=== PATIENT | female | born 1965 | race American Indian/Alaskan Native ===

== ENCOUNTER 2016-07-03 15:36 | Emergency (ER) | payer SELFPAY ==
[2016-07-03 15:52] VITALS: BP 107/63
--- NOTE | 2016-07-03 17:38 | Emergency Department Report ---
Chief Complaint: Skin/Abscess/Foreign Body Stated Complaint: BUMP LT ARMPIT Time Seen by Provider: 07/03/16 17:27 - HPI History of Present Illness: 50-year-old female presents today with a lump under her left arm. Patient states that she had a procedure done 6 days ago which involved putting dye through her fistula to check for blockage. Patient states that since then she is unable to hear from her left ear and she has a painful knot of left axillary region. Patient had her full dialysis treatment today. - ROS Review of Systems: Per HPI - Exam Vital Signs: Vital Signs 07/03/16 15:48 Temperature 98.9 F Pulse Rate 68 Respiratory 18 Rate Blood Pressure 107/63 O2 Sat by Pulse 99 Oximetry Physical Exam: General: 50-year-old female in no acute distress. Well-developed, well- nourished. CV: Regular rate and rhythm. Lungs: Clear to auscultation bilaterally. Left axilla: 1 cm in diameter lump noted of the left axillary region. Positive for tender to touch. No drainage or bleeding noted. Ears: Cerumen impaction noted bilaterally. MSE screening note: Focused history and physical exam performed. Due to findings the following was ordered: ED Disposition for MSE Condition: Stable
[2016-07-03 18:49] LABS: BUN/Creatinine Ratio 4.5; Basophils % (Auto) 0.3 % (0.0-1.8); Calcium 8.4 mg/dL (8.4-10.2); Chloride 89.7 mmol/L (98-107); Eosinophils % (Auto) 0.4 % (0.0-4.3); Hematocrit 30.9 % (30.3-42.9); Mean Corpuscular HGB Conc 32 % (30-34); Mean Corpuscular Hemoglobin 30 pg (28-32); Mean Corpuscular Volume 94 fl (79-97); Platelet Count 281 K/mm3 (140-440); Potassium 4.1 mmol/L (3.6-5.0); Red Cell Distribution Width 13.9 % (13.2-15.2); White Blood Count 4.8 K/mm3 (4.5-11.0)
--- NOTE | 2016-07-06 22:18 | ED Elopement Review ---
ED Pt Elopement review - Results review Lab results: Laboratory Tests 07/03/16 07/03/16 17:47 17:47 WBC 4.8 RBC 3.30 L Hgb 10.0 L Hct 30.9 MCV 94 MCH 30 MCHC 32 RDW 13.9 Plt Count 281 Lymph % (Auto) 33.5 Person % (Auto) 13.0 H Eos % (Auto) 0.4 Baso % (Auto) 0.3 Lymph # 1.6 Person # 0.6 Eos # 0.0 Baso # 0.0 Seg Neutrophils % 52.8 Seg Neutrophils # 2.5 Sodium 130 L Potassium 4.1 Chloride 89.7 L Carbon Dioxide 27 Anion Gap 17 BUN 18 H Creatinine 4.0 H Estimated GFR 12 BUN/Creatinine Ratio 4.50 Glucose 544 H* Calcium 8.4 - Call Back decision Pt Call Back Decision: Pt to F/U with PMD (hyperglyemia here,)
== END 2016-07-03 17:50 | disposition left against medical advice (07) ==
LOC: ED 15:36
DX: M79.89 Other specified soft tissue disorders (principal); Z53.21 Procedure and treatment not carried out due to patient leaving prior to being seen by health care provider
CPT/HCPCS: 36415; 80048; 85025

== ENCOUNTER 2016-10-08 10:37 | Outpatient (CLI) | payer MEDICARE, OTHER ==
--- NOTE | 2016-10-15 07:04 | Vascular Lab Report ---
CAROTID DUPLEX STUDY: RIGHT PSVEDV CCA PROX: [id number] CCA DIST: 8819 ICA PROX: 6218 ICA MID: 7325 ICA DIST: 7625 ECA: 65 VERT: 53 16 LEFT PSVEDV CCA PROX:[id number] CCA DIST: 9623 ICA PROX: 7417 ICA MID: 6020 ICA DIST: 7528 ECA: 57 VERT: 64 17 REASON FOR EXAM: Carotid artery stenosis. COMMENTS ON THE RIGHT: Doppler frequency analysis is consistent with 16 to 49 percent diameter reduction of the internal carotid artery. Minimal amount of plaque is seen. The common carotid artery is patent. The external carotid artery is patent. The vertebral artery has antegrade flow. COMMENTS ON THE LEFT: Doppler frequency analysis is consistent with 16 to 49 percent diameter reduction of the internal carotid artery. Minimal amount of plaque is seen. The common carotid artery is patent. The external carotid artery is patent. The vertebral artery has antegrade flow. IMPRESSION: Less than 50% diameter reduction in the internal carotid arteries bilaterally. Consider repeat carotid artery duplex in 12 months.
== END 2016-10-08 10:38 | disposition home or self-care (01) ==
LOC: VAS 10:37
PROVIDERS: ATTEND Internal Medicine Cardiovascular Disease
DX: I65.23 Occlusion and stenosis of bilateral carotid arteries (principal)
CPT/HCPCS: 93880

== ENCOUNTER 2017-01-18 11:03 | Outpatient (CLI) | payer MEDICARE, OTHER ==
[2017-01-18] MEDS ORDERED: NACL ONE (13:05)
--- NOTE | 2017-01-18 14:32 | Cat Scan Report ---
CT scan of abdomen and pelvis with IV contrast: History: Pelvic and perineal pain, abdominal pain Findings: Normal lung bases. No pleural or pericardial effusion. Normal liver spleen pancreas gallbladder. Normal adrenals. Several hypodensities right and left kidney probably multiple cysts. No hydronephrosis. Decompressed bladder. No free intraperitoneal fluid or air. No evidence of adenopathy. Atherosclerotic abdominal aorta without aneurysm. Stable inferior vena cava filter. Minimal ascitic fluid around spleen and liver. Gaseous colon with large volume stool in colon. No evidence of appendicitis or diverticulitis. Impression: Multiple hypodensities right and left kidney suggestive of cysts. Sonographic correlation advised. Minimal ascitic fluid. Suspected fibroid uterus.
== END 2017-01-18 11:04 | disposition home or self-care (01) ==
LOC: CT 11:03
PROVIDERS: ATTEND Family Medicine
DX: R10.9 Unspecified abdominal pain (principal); R10.2 Pelvic and perineal pain; I70.0 Atherosclerosis of aorta
CPT/HCPCS: 36415; 74177; 82565; 84520; Q9967

== ENCOUNTER 2018-09-26 15:31 | Emergency (ER) | payer OTHER, MEDICARE ==
--- NOTE | 2018-09-26 16:11 | Emergency Department Report ---
Chief Complaint: High BP Stated Complaint: HBP/WHEEZING Time Seen by Provider: 09/26/18 16:07 - HPI History of Present Illness: This is a 53 y.o. female that presents to the ER with cough. Patient went to [facility] prior to arrival. States CXR was normal but blood pressure and glucose was elevated. 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 PMH: DM, HTN, ESRD on dialysis - Exam Vital Signs: Vital Signs 09/26/18 16:06 Temperature 97.7 F Pulse Rate 64 Respiratory 20 Rate Blood Pressure 182/85 O2 Sat by Pulse 98 Oximetry MSE screening note: Focused history and physical exam performed. Due to findings the following was ordered: ED Disposition for MSE Condition: Stable
[2018-09-26] MEDS ORDERED: CATAPRES PO ONE ×2 (16:51→17:36)
[2018-09-26] MEDS ORDERED: ATROVENT IH ONE (16:51)
[2018-09-26] MEDS ORDERED: PROVENTIL IH ONE (16:51)
[2018-09-26] MEDS ORDERED: HumuLIN R SUB-Q ONE (16:52)
[2018-09-26 17:42] VITALS: BP 162/78
--- NOTE | 2018-09-26 18:26 | Emergency Department Report ---
- General Chief Complaint: High BP Stated Complaint: HBP/WHEEZING Time Seen by Provider: 09/26/18 16:07 Source: patient Mode of arrival: Ambulatory Limitations: No Limitations - History of Present Illness Initial Comments: Patient is a 53-year-old female past medical history of hypertension diabetes and end-stage renal disease who goes to dialysis TTS who is here because of 6 weeks of cough. Patient states she put in a cough off for several weeks. She finally went to urgent care today and because her blood pressure and blood sugar was elevated she was sent here for evaluation. Patient states that the cough is productive of yellow sputum. She states she just has some minor shortness of breath but denies any fever nausea vomiting. Patient's blood sugar at urgent care was greater than 300 she has had no nausea vomiting or abdominal cramps. Patient is a insulin-dependent diabetic and has not run out of her insulin. Patient blood pressure was 180/85 on arrival. She denies any chest pain. - Related Data Previous Rx's Medication Instructions Recorded Last Taken Type ALBUTEROL Inhaler(NF) [VENTOLIN 2 puff IH Q4HRT #1 inha 09/26/18 Unknown Rx Inhaler(NF)] Benzonatate [Tessalon Perles] 100 mg PO Q8HR #10 capsule 09/26/18 Unknown Rx Allergies Allergy/AdvReac Type Severity Reaction Status Date / Time metoclopramide HCl Allergy Swelling Verified 07/03/16 15:48 [From Reglan] morphine Allergy Itching Verified 07/03/16 15:48 promethazine HCl Allergy Swelling Verified 07/03/16 15:48 [From Phenergan] ED Review of Systems ROS: Stated complaint: HBP/WHEEZING Other details as noted in HPI Comment: All other systems reviewed and negative ED Past Medical Hx - Past Medical History Hx Hypertension: Yes Hx Diabetes: Yes Hx Renal Disease: Yes (DIALYSIS) - Surgical History Additional Surgical History: SHUNT LEFT ARM KNEE SURG/ TUBAL/ RENAL TRANSPLANTCATARACT SURGERY - Social History Smoking Status: Never Smoker Substance Use Type: None - Medications Home Medications: Home Medications Medication Instructions Recorded Confirmed Last Taken Type ALBUTEROL Inhaler(NF) [VENTOLIN 2 puff IH Q4HRT #1 inha 09/26/18 Unknown Rx Inhaler(NF)] Benzonatate [Tessalon Perles] 100 mg PO Q8HR #10 capsule 09/26/18 Unknown Rx ED Physical Exam - General Limitations: No Limitations General appearance: alert, in no apparent distress - Head Head exam: Present: atraumatic, normocephalic - Eye Eye exam: Present: normal appearance, PERRL, EOMI - ENT ENT exam: Present: normal orophraynx, mucous membranes moist - Neck Neck exam: Present: normal inspection - Respiratory Respiratory exam: Present: wheezes. Absent: normal lung sounds bilaterally, respiratory distress, rales, rhonchi, stridor - Cardiovascular Cardiovascular Exam: Present: regular rate, normal rhythm, normal heart sounds. Absent: systolic murmur, diastolic murmur, rubs, gallop - GI/Abdominal GI/Abdominal exam: Present: soft, normal bowel sounds. Absent: distended, tenderness, guarding, rebound - Extremities Exam Extremities exam: Present: normal inspection - Back Exam Back exam: Present: normal inspection - Neurological Exam Neurological exam: Present: alert, oriented X3 - Psychiatric Psychiatric exam: Present: normal affect, normal mood - Skin Skin exam: Present: warm, dry, intact, normal color. Absent: rash ED Course Vital Signs 09/26/18 09/26/18 09/26/18 16:06 17:18 17:38 Temperature 97.7 F Pulse Rate 64 62 Pulse Rate [ 71 Posterior Bilateral Throughout] Respiratory 20 20 Rate Respiratory 20 Rate [Posterior Bilateral Throughout] Blood Pressure 182/85 Blood Pressure 162/78 [Right] O2 Sat by Pulse 98 100 Oximetry 09/26/18 18:20 Temperature Pulse Rate Pulse Rate [ 82 Posterior Bilateral Throughout] Respiratory Rate Respiratory 20 Rate [Posterior Bilateral Throughout] Blood Pressure Blood Pressure [Right] O2 Sat by Pulse Oximetry ED Medical Decision Making - Radiology Data Radiology results: image reviewed (patient had x-ray at the urgent care and a disc was provided. I was able to look at the chest x-ray is no acute process.) - Medical Decision Making She was given a neb treatment and her wheezing has resolved. Patient states she feels as though she is moving air much better. Patient will be referred to pulmonology. Patient given albuterol inhaler as well as Tessalon for cough. Patient will not be given steroids secondary to her elevation of her blood sugar. Critical care attestation.: If time is entered above; I have spent that time in minutes in the direct care of this critically ill patient, excluding procedure time. ED Disposition Clinical Impression: Hypertensive urgency, Hyperglycemia Chronic bronchitis Qualifiers: Chronic bronchitis type: simple Qualified Code(s): J41.0 - Simple chronic bronchitis Disposition: DC- TO HOME OR SELFCARE Is pt being admited?: No Does the pt Need Aspirin: No Condition: Stable Instructions: Chronic Bronchitis (ED), Hypertension (ED) Referrals: PRIMARY CARE, [Primary Care Provider] - 3-5 Days Time of Disposition: 18:26
== END 2018-09-26 18:35 | disposition home or self-care (01) ==
LOC: ED 15:31
DX: E11.65 Type 2 diabetes mellitus with hyperglycemia (principal); I16.0 Hypertensive urgency; J41.0 Simple chronic bronchitis
CPT/HCPCS: 82962; 94644; 99283

== ENCOUNTER 2019-04-14 02:12 | Emergency (ER) | payer MEDICARE, OTHER ==
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
[2019-04-14 04:28] VITALS: BP 160/78
== END 2019-04-14 04:30 | disposition home or self-care (01) ==
LOC: ED 02:12
DX: E10.649 Type 1 diabetes mellitus with hypoglycemia without coma (principal); E10.22 Type 1 diabetes mellitus with diabetic chronic kidney disease; I12.0 Hypertensive chronic kidney disease with stage 5 chronic kidney disease or end stage renal disease; N18.6 End stage renal disease; Z99.2 Dependence on renal dialysis; Z98.890 Other specified postprocedural states; Z88.8 Allergy status to other drugs, medicaments and biological substances; Z88.5 Allergy status to narcotic agent
CPT/HCPCS: 82962

== ENCOUNTER 2021-06-08 16:22 | Observation (INO) | payer MEDICARE ==
--- NOTE | 2021-06-08 17:57 | Emergency Department Report ---
ED Medical Clearance HPI - General Chief complaint: Medical Clearance Stated complaint: NEEDS DIALYSIS Time Seen by Provider: 06/08/21 17:51 Source: patient Mode of arrival: Ambulatory - History of Present Illness Initial comments: Patient is a 55-year-old female who presents emergency room stating she needs dialysis. She reports that she last had dialysis on 06/03/2021. Patient states that she was exposed at work to someone with COVID-19. She states that she went to get tested on 06/01/2021 and was advised that she was positive for COVID-19. She states that the clinic for COVID-19 positive patients was full and so therefore they advised her to come to the emergency room for dialysis. 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 She states héctor t she feels a little heavy like she is retaining some fluid but otherwise feels fine. She denies any chest pain, shortness of breath, leg swelling, fever, cough, vomiting, diarrhea. She states that she has been asymptomatic for the COVID-19. She states that she received both doses of the COVID-19 vaccine. Allergy to Reglan, morphine, Phenergan. Home medications: Previous Rx's Medication Instructions Recorded Last Taken Type ALBUTEROL Inhaler(NF) [VENTOLIN 2 puff IH Q4HRT #1 inha 09/26/18 Unknown Rx Inhaler(NF)] Benzonatate [Tessalon Perles] 100 mg PO Q8HR #10 capsule 09/26/18 Unknown Rx Allergies/Adverse reactions: Allergies Allergy/AdvReac Type Severity Reaction Status Date / Time metoclopramide HCl Allergy Swelling Verified 06/08/21 17:38 [From Reglan] morphine Allergy Itching Verified 06/08/21 17:38 promethazine HCl Allergy Swelling Verified 06/08/21 17:38 [From Phenergan] ED Review of Systems ROS: Stated complaint: NEEDS DIALYSIS Other details as noted in HPI Comment: All other systems reviewed and negative ED Past Medical Hx - Past Medical History Hx Hypertension: Yes Hx Diabetes: Yes Hx Renal Disease: Yes (DIALYSIS) - Surgical History Additional Surgical History: SHUNT LEFT ARM KNEE SURG/ TUBAL/ RENAL TRANSPLANTCATARACT SURGERY - Social History Smoking Status: Never Smoker Substance Use Type: None - Medications Home Medications: Home Medications Medication Instructions Recorded Confirmed Last Taken Type ALBUTEROL Inhaler(NF) [VENTOLIN 2 puff IH Q4HRT #1 inha 09/26/18 Unknown Rx Inhaler(NF)] Benzonatate [Tessalon Perles] 100 mg PO Q8HR #10 capsule 09/26/18 Unknown Rx ED Physical Exam - General Limitations: No Limitations General appearance: alert, in no apparent distress - Head Head exam: Present: atraumatic, normocephalic - Eye Eye exam: Present: normal appearance - ENT ENT exam: Present: mucous membranes moist - Respiratory Respiratory exam: Present: normal lung sounds bilaterally. Absent: respiratory distress, wheezes, rales, rhonchi, stridor, chest wall tenderness, accessory muscle use, decreased breath sounds, prolonged expiratory - Cardiovascular Cardiovascular Exam: Present: regular rate, normal rhythm, systolic murmur - Extremities Exam Extremities exam: Absent: pedal edema - Neurological Exam Neurological exam: Present: alert, oriented X3 - Psychiatric Psychiatric exam: Present: normal affect, normal mood - Skin Skin exam: Present: warm, dry, intact ED Course Vital Signs 06/08/21 17:42 Temperature 98.3 F Pulse Rate 70 Respiratory 18 Rate Blood Pressure 175/81 O2 Sat by Pulse 100 Oximetry - Consultations Consultation #1: 06/08/21 19:[address] Short, hospitalist will accept and resume care of patient, will admit to hospitalist service 06/08/21 19:[address] Cullen, nephrology who advised admit to hospitalist service, advised to give Kayexalate 30 mEq, 1 amp of D50, 5 units of IV insulin, 10 mg of albuterol, 1 amp calcium gluconate and 1 amp of sodium bicarb ED Medical Decision Making - Lab Data Result diagrams: 06/08/21 17:56 06/08/21 17:56 Lab Results 06/08/21 06/08/21 Range/Units 17:56 17:56 WBC 4.2 L (4.5-11.0) K/mm3 RBC 3.62 L (3.65-5.03) M/mm3 Hgb 10.8 (10.1-14.3) gm/dl Hct 34.8 (30.3-42.9) % MCV 96 (79-97) fl MCH 30 (28-32) pg MCHC 31 (30-34) % RDW 14.2 (13.2-15.2) % Plt Count 272 (140-440) K/mm3 Lymph % (Auto) 41.3 H (13.4-35.0) % Burnett % (Auto) 10.0 H (0.0-7.3) % Eos % (Auto) 0.0 (0.0-4.3) % Baso % (Auto) 0.4 (0.0-1.8) % Lymph # (Auto) 1.8 (1.2-5.4) K/mm3 Burnett # (Auto) 0.4 (0.0-0.8) K/mm3 Eos # (Auto) 0.0 (0.0-0.4) K/mm3 Baso # (Auto) 0.0 (0.0-0.1) K/mm3 Seg Neutrophils % 48.3 (40.0-70.0) % Seg Neutrophils # 2.1 (1.8-7.7) K/mm3 Sodium 146 H (137-145) mmol/L Potassium 6.3 H* (3.6-5.0) mmol/L Chloride 103.0 (98-107) mmol/L Carbon Dioxide 22 (22-30) mmol/L Anion Gap 27 mmol/L BUN 103 H (7-17) mg/dL Creatinine 14.8 H (0.6-1.2) mg/dL Estimated GFR 3 ml/min BUN/Creatinine Ratio 7 % Glucose 190 H (65-100) mg/dL Calcium 9.3 (8.4-10.2) mg/dL - Medical Decision Making Patient is a 55-year-old female who presents emergency room stating she needs dialysis. She reports that she last had dialysis on 06/03/2021. Patient states that she was exposed at work to someone with COVID-19. She states that she went to get tested on 06/01/2021 and was advised that she was positive for COVID-19. She states that the clinic for COVID-19 positive patients was full and so therefore they advised her to come to the emergency room for dialysis. 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 She states that she feels a little heavy like she is retaining some fluid but otherwise feels fine. She denies any chest pain, shortness of breath, leg swelling, fever, cough, vomiting, diarrhea. She states that she has been asymptomatic for the COVID-19. She states that she received both doses of the COVID-19 vaccine. Allergy to Reglan, morphine, Phenergan. Vitals with elevated blood pressure, otherwise stable. Breath sounds are clear bilaterally, no wheezing, no rhonchi, no rales, no signs of pedal edema. Labs significant for renal failure and hyperkalemia. Patient needs admission for dialysis. Discussed with Dr. Bejarano ER attending who agrees with admission.Spoke to Dr. Short, hospitalist will accept and resume care of patient, will admit to hospitalist service. Spoke to Dr. Cullen, nephrology who advised admit to hospitalist service, advised to give Kayexalate 30 mEq, 1 amp of D50, 5 units of IV insulin, 10 mg of albuterol, 1 amp calcium gluconate and 1 amp of sodium bicarb. Discussed findings with patient is agreeable with admission. ED Disposition Clinical Impression: ESRD needing dialysis, Hyperkalemia Disposition: 02 SHORT TERM HOSPITAL Is pt being admited?: Yes Does the pt Need Aspirin: No Condition: Stable Referrals: PRIMARY CARE, [Primary Care Provider] - 3-5 Days Time of Disposition: 19:45 Print Language: PANAMANIAN
[2021-06-08 18:26] LABS: Basophils % (Auto) 0.4 % (0.0-1.8); Hematocrit 34.8 % (30.3-42.9); Hemoglobin 10.8 gm/dl (10.1-14.3); Lymphocytes # (Auto) 1.8 K/mm3 (1.2-5.4); Lymphocytes % (Auto) 41.3 % (13.4-35.0); Mean Corpuscular HGB Conc 31 % (30-34); Mean Corpuscular Volume 96 fl (79-97); Monocytes # (Auto) 0.4 K/mm3 (0.0-0.8); Platelet Count 272 K/mm3 (140-440); Red Blood Count 3.62 M/mm3 (3.65-5.03); Red Cell Distribution Width 14.2 % (13.2-15.2)
[2021-06-08 19:13] LABS: Calcium 9.3 mg/dL (8.4-10.2)
--- NOTE | 2021-06-08 19:21 | History and Physical Report ---
History of Present Illness Chief complaint: I feel fine I just could not get dialysis History of present illness: 55 YO Female with ESRD on HD(T,R,Sa), DM, HTN, Malnutrition, Asymptomatic Coronavirus Infection(Fully Vaccinated against COVID 19) diagnosed 06/03/2021 presents to ED for evaluation. Patient reports "I feel fine I just need dialysis". Patient states that she was unable to undergo her routine scheduled dialysis due to a positive coronavirus test. Patient states that she was subsequently instructed to seek further care at [facility]. Patient transported to [facility] via private vehicle for further care and evaluation of the aforementioned symptoms. The patient was seen and evaluated in the emergency department. All lab and imaging studies reviewed. Patient found to have end-stage renal disease complicated by hyperkalemia without EKG changes. Patient placed in observation status and admitted to medical floor. Nephrology team consulted in ED. Patient denies fever, chills, shortness of breath, sore throat, cough, nausea, vomiting. No prior admission for review. All medication listed at time of admission has been reconciled. Advanced care planning conducted in ED. Past History Past Medical History: diabetes, ESRD, hypertension, other (See HPI) Past Surgical History: Other (SHUNT LEFT ARM KNEE SURG/ TUBAL/ RENAL TRANSPLANTCATARACT SURGERY) Social history: . denies: smoking, alcohol abuse Family history: diabetes, hypertension Medications and Allergies Allergies Allergy/AdvReac Type Severity Reaction Status Date / Time metoclopramide HCl Allergy Swelling Verified 06/08/21 17:38 [From Reglan] morphine Allergy Itching Verified 06/08/21 17:38 promethazine HCl Allergy Swelling Verified 06/08/21 17:38 [From Phenergan] Home Medications Medication Instructions Recorded Confirmed Last Taken Type ALBUTEROL Inhaler(NF) [VENTOLIN 2 puff IH Q4HRT #1 inha 09/26/18 Unknown Rx Inhaler(NF)] Benzonatate [Tessalon Perles] 100 mg PO Q8HR #10 capsule 09/26/18 Unknown Rx Review of Systems Constitutional: no weight loss, no weight gain, no fever, no chills Ears, nose, mouth and throat: no ear pain, no ear discharge, no tinnitis, no decreased hearing, no nasal congestion Breasts: no change in shape, no swelling, no mass Cardiovascular: no chest pain, no rapid/irregular heart beat, no edema, no syncope Respiratory: no cough, no cough with sputum, no excessive sputum, no hemoptysis, no shortness of breath, no dyspnea on exertion Gastrointestinal: no abdominal pain, no nausea, no vomiting, no diarrhea, no constipation Genitourinary Female: no pelvic pain, no flank pain, no dysuria, no urinary frequency Rectal: no pain, no incontinence, no bleeding Musculoskeletal: no neck stiffness, no neck pain, no arm numbness/tingling, no shooting leg pain, no redness of joints Integumentary: no rash, no pruritis, no redness, no sores, no wounds, no jaundice Neurological: no head injury, no parathesias, no tingling, no seizures, no syncope Psychiatric: no anxiety, no memory loss, no sleep disturbances, no insomnia, no change in appetite Endocrine: no cold intolerance, no excessive thirst, no polydipsia, no nocturia Hematologic/Lymphatic: no easy bruising, no easy bleeding Allergic/Immunologic: no urticaria, no allergic rhinitis Exam - Constitutional Vitals: Temp Pulse Resp BP Pulse Ox 98.3 F 70 18 175/81 100 06/08/21 17:42 06/08/21 17:42 06/08/21 17:42 06/08/21 17:42 06/08/21 17:42 General appearance: Present: cachectic - EENT Eyes: Present: PERRL ENT: hearing intact, clear oral mucosa - Neck Neck: Present: supple, normal ROM - Respiratory Respiratory effort: normal Respiratory: bilateral: CTA - Cardiovascular Heart Sounds: Present: S1 & S2. Absent: rub, click - Extremities Extremities: pulses symmetrical, No edema Peripheral Pulses: within normal limits - Abdominal General gastrointestinal: Present: soft, non-tender, non-distended, normal bowel sounds Female genitourinary: Present: normal - Integumentary Integumentary: Present: clear, warm, dry - Musculoskeletal Musculoskeletal: gait normal, strength equal bilaterally - Psychiatric Psychiatric: appropriate mood/affect, intact judgment & insight - Neurologic Neurologic: CNII-XII intact, moves all extremities Results - Labs CBC & Chem 7: 06/08/21 17:56 06/08/21 17:56 Labs: Abnormal lab results 06/08/21 06/08/21 Range/Units 17:56 17:56 WBC 4.2 L (4.5-11.0) K/mm3 RBC 3.62 L (3.65-5.03) M/mm3 Lymph % (Auto) 41.3 H (13.4-35.0) % [place] % (Auto) 10.0 H (0.0-7.3) % Sodium 146 H (137-145) mmol/L Potassium 6.3 H* (3.6-5.0) mmol/L BUN 103 H (7-17) mg/dL Creatinine 14.8 H (0.6-1.2) mg/dL Glucose 190 H (65-100) mg/dL Assessment and Plan - Patient Problems (1) ESRD needing dialysis Current Visit: Yes Status: Acute Plan to address problem: Dialysis as per renal team, renal diet, strict I's/O, avoid nephrotoxic agents, nephrology team consulted in ED. (2) Coronavirus infection Current Visit: Yes Status: Acute Plan to address problem: Patient currently asymptomatic. Vitamin C therapy, vitamin D therapy, zinc therapy, azithromycin, or steroid therapy. (3) Hyperkalemia Current Visit: Yes Status: Acute Plan to address problem: Insulin, D50, Kayexalate, no EKG changes. Dialysis as per renal team. (4) Fluid overload Current Visit: Yes Status: Acute Plan to address problem: Dialysis as per renal team. (5) DVT prophylaxis Current Visit: Yes Status: Acute Plan to address problem: SCD to bilateral lower extremities while in bed, patient is ambulatory. (6) Advance care planning Current Visit: Yes Status: Acute Plan to address problem: disease education conducted, care plan discussed, diagnoses discussed, prognosis discussed, patient is full code. Patient acknowledges understanding and agreement with care plan +30 minutes.
[2021-06-08] MEDS ORDERED: DEXTROSE 50% IN WATER (25GM) 50 ML VIAL IV ONE (19:41)
[2021-06-08] MEDS ORDERED: INSULIN REGULAR, HUMAN 100 UNITS/1 ML IV ONE (19:41)
[2021-06-08] MEDS ORDERED: SODIUM POLYSTYRENE 15 GM/60 ML ORAL LIQD PO ONE (19:41)
[2021-06-08] MEDS ORDERED: ALBUTEROL 2.5 MG/3 ML NEBU IH ONE (19:41)
[2021-06-08] MEDS ORDERED: SODIUM BICARB 8.4% 50 MEQ/50 ML SYRINGE IV ONE (19:42)
[2021-06-08] MEDS ORDERED: SODIUM CHLORIDE 0.9% 100 ML IV PRN (19:47)
[2021-06-08] MEDS ORDERED: oxyCODONE /ACETAMINOPHEN 5-325MG TAB PO PRN (20:00)
[2021-06-08] MEDS ORDERED: ACETAMINOPHEN 325 MG TAB PO PRN (20:00)
[2021-06-08] MEDS ORDERED: ONDANSETRON 4 MG/2 ML INJ IV PRN (20:00)
[2021-06-08] MEDS ORDERED: HYDROmorphone 1 MG/1 ML INJ IV PRN (20:00)
[2021-06-08] MEDS ORDERED: ALBUTEROL 2.5 MG/3 ML NEBU IH PRN (20:00)
[2021-06-08] MEDS ORDERED: CALCIUM GLUCONATE 1,000 MG in SODIUM CHLORIDE 0.9% 100 ML IV ONE (20:41)
[2021-06-08 22:56] LABS: Hepatitis C Virus Antibody Non-Reactive (NonReactive)
[2021-06-08 23:34] LABS: Hepatitis B Surface Antigen Nonreactive (Negative)
[2021-06-08] MEDS ORDERED: INSULIN REGULAR, HUMAN 100 UNITS/1 ML ONE (23:34)
[2021-06-09] MEDS: ASCORBIC ACID 500 MG TAB PO SCH ×2 (00:51→11:01)
[2021-06-09] MEDS: ZINC SULFATE 220 MG CAP PO SCH ×2 (00:51→11:02)
[2021-06-09 04:21] LABS: Calcium 9.1 mg/dL (8.4-10.2)
[2021-06-09] MEDS ORDERED: hydrALAZINE 20 MG/1 ML INJ IV ONE (04:47)
[2021-06-09] MEDS ORDERED: predniSONE 10 MG TAB PO SCH (08:00)
--- NOTE | 2021-06-09 09:39 | Consultation ---
History of Present Illness - Reason for Consult Consult date: 06/09/21 Requesting physician: ELYSIA DENNIS - History of Present Illness 55 YO Female with ESRD on HD(T,R,Sa), DM, HTN, Malnutrition, Asymptomatic Coronavirus Infection(Fully Vaccinated against COVID 19) diagnosed 06/03/2021 presents to ED for evaluation. Patient reports "I feel fine I just need d ialysis". Patient states that she was unable to undergo her routine scheduled dialysis due to a positive coronavirus test. Patient states that she was subsequently instructed to seek further care at [facility]. Patient transported to [facility] via private vehicle for further care and evaluation of the aforementioned symptoms. The patient was seen and evaluated in the emergency department. All lab and imaging studies reviewed. Patient found to have end-stage renal disease complicated by hyperkalemia without EKG changes. Patient placed in observation status and admitted to medical floor. Patient seen in the emergency room. She is comfortable. Currently on room air. Past History Past Medical History: diabetes, ESRD, hypertension, other (See HPI) Past Surgical History: Other (SHUNT LEFT ARM KNEE SURG/ TUBAL/ RENAL TRANSPLANTCATARACT SURGERY) Social history: . denies: smoking, alcohol abuse Family history: diabetes, hypertension Medications and Allergies Allergies Allergy/AdvReac Type Severity Reaction Status Date / Time metoclopramide HCl Allergy Swelling Verified 06/08/21 17:38 [From Reglan] morphine Allergy Itching Verified 06/08/21 17:38 promethazine HCl Allergy Swelling Verified 06/08/21 17:38 [From Phenergan] Home Medications Medication Instructions Recorded Confirmed Last Taken Type ALBUTEROL Inhaler(NF) [VENTOLIN 2 puff IH Q4HRT #1 inha 09/26/18 Unknown Rx Inhaler(NF)] Benzonatate [Tessalon Perles] 100 mg PO Q8HR #10 capsule 09/26/18 Unknown Rx Active Meds: Active Medications Acetaminophen (Acetaminophen 325 Mg Tab) 650 mg PO Q4H PRN PRN Reason: Pain MILD(1-3)/Fever >100.5/LEMUS Albuterol (Albuterol 2.5 Mg/3 Ml Nebu) 2.5 mg IH Q4HRT PRN PRN Reason: Shortness Of Breath Ascorbic Acid (Ascorbic Acid 500 Mg Tab) 500 mg PO BID LUBA Last Admin: 06/09/21 00:51 Dose: 500 mg Azithromycin (Azithromycin 250 Mg Tab) 500 mg PO QDAY [facility]; Protocol Stop: 06/13/21 10:01 Cholecalciferol (Cholecalciferol (Vit D3) 1000 Unit (25 Mcg) Tab) 1,000 unit PO QDAY [facility] Hydromorphone HCl (Hydromorphone 1 Mg/1 Ml Inj) 0.5 mg IV Q23H PRN PRN Reason: Pain , Severe (7-10) Sodium Chloride (Nacl 0.9%) 100 mls @ 999 mls/hr IV HANDY PRN PRN Reason: Hypotension Ondansetron HCl (Ondansetron 4 Mg/2 Ml Inj) 4 mg IV Q8H PRN PRN Reason: Nausea And Vomiting Oxycodone/Acetaminophen (Oxycodone /Acetaminophen 5-325mg Tab) 1 tab PO Q16H PRN PRN Reason: Pain, Moderate (4-6) Prednisone (Prednisone 10 Mg Tab) 30 mg PO QDAY@0800 [facility] Sodium Chloride (Sodium Chloride 0.9% 10 Ml Flush Syringe) 10 ml IV BID [facility] Last Admin: 06/09/21 00:51 Dose: 10 ml Sodium Chloride (Sodium Chloride 0.9% 10 Ml Flush Syringe) 10 ml IV PRN PRN PRN Reason: LINE FLUSH Zinc Sulfate (Zinc Sulfate 220 Mg Cap) 220 mg PO BID [facility] Last Admin: 06/09/21 00:51 Dose: 220 mg Review of Systems All systems: negative (Negative except as noted above) Exam - Vital Signs Vital signs: Vital Signs Temp Pulse Resp BP Pulse Ox 98.3 F 70 18 175/81 100 06/08/21 17:42 06/08/21 17:42 06/08/21 17:42 06/08/21 17:42 06/08/21 17:42 - General Appearance General appearance: well-developed, well-nourished, appears stated age EENT: PERRL, mucous membranes moist Neck: Present: neck supple, trachea midline. Absent: JVD/HJR, Masses Respiratory: Clear to Ascultation Heart: regular, normal heart rate, S1S2, no murmurs Gastrointestinal: Present: normal, normoactive bowel sounds Integumentary: no rash, other (AV fistula left upper arm. Good bruit and thrill.) Results - Lab Results 06/08/21 17:56 06/09/21 03:10 Most recent lab results Calcium 9.1 mg/dL (8.4-10.2) 06/09/21 03:10 Assessment and Plan Impression * End-stage renal disease on maintenance hemodialysis * Hyperkalemia * COVID-19 infection * Hypertension * Diabetes Recommendations Patient is scheduled for hemodialysis treatment this morning Check chemistries again in the morning and reassess need for additional dialysis treatment Continue dialysis on MWF schedule while in-house Treatment of COVID-19 infection as per primary team Avoid nephrotoxins Adjust diet and meds for ESRD state Epogen with dialysis Binders with meals No IV, BP or venipuncture in her access arm Thank you very much for the consultation. Shall follow along with you
[2021-06-09] MEDS ORDERED: AZITHROMYCIN 250 MG TAB PO SCH (10:00)
[2021-06-09] MEDS ORDERED: CHOLECALCIFEROL (VIT D3) 1000 UNIT (25 mcg) TAB PO SCH (10:00)
--- NOTE | 2021-06-09 13:52 | Discharge Summary ---
Providers - Providers Date of Admission: 06/08/21 20:00 Attending physician: ELYSIA DENNIS MD 06/08/21 19:41 Consult to Physician [CONS] Stat Comment: Consulting Provider: RODRÍGUEZ RODRIGUEZ Physician Instructions: Reason For Exam: hyperkalemia, ESRD needing dialysis Primary care physician: EKATERINA BASS MD Hospitalization Condition: Stable Exam - Constitutional Vitals: Temp Pulse Resp BP Pulse Ox 98.4 F 76 15 206/72 98 06/09/21 01:30 06/09/21 12:01 06/09/21 12:01 06/09/21 12:06/09/21 12:01 Plan Care Plan Goals: Please follow CDC guidelines for isolation for Covid 19 infection. You must self quarantine as long as you have symptoms such as fever, shortness of breath, cough, sore throat etc. If you do not have any symptoms after self quarantining for 5 total days, you must wear masks for the following 5 days when in contact with others or in public spaces. Since your positive test was collected on 06/01, you must wear a mask for the next 3 days with any interactions with people. Follow up with: EKATERINA BASS MD [Primary Care Provider] - 3-5 Days
[2021-06-09 21:17] VITALS: BP 141/67
== END 2021-06-09 21:28 | disposition home or self-care (01) ==
LOC: ED 16:22 → 3A 20:00
PROVIDERS: ADMIT Internal Medicine; ATTEND Student in an Organized Health Care Education/Training Program
DX: U07.1 COVID-19 (principal); E87.70 Fluid overload, unspecified; I12.0 Hypertensive chronic kidney disease with stage 5 chronic kidney disease or end stage renal disease; N18.6 End stage renal disease; E87.5 Hyperkalemia; E11.9 Type 2 diabetes mellitus without complications; Z79.899 Other long term (current) drug therapy; Z98.890 Other specified postprocedural states; Z99.2 Dependence on renal dialysis
CPT/HCPCS: 36415; 80048; 80074; 82962; 84132; 85025; 94644; 96365; 96366; 96375; 99284; G0257; G0378; J0610; J3490; Q9967; J1815